=== PATIENT | female | born 1965 | race Caucasian/White ===

== ENCOUNTER 2021-02-21 13:26 | Emergency (ER) | payer OTHER, SELFPAY ==
[2021-02-21 13:45] VITALS: BP 174/84; PULSE 75; RESP 18; TEMP 36.8; O2SAT 98; BMI 32.3
[2021-02-21] MEDS: oxyCODONE HCl Immed Release 5 MG TABLET 10 MG PO (15:01)
--- NOTE | 2021-02-21 15:23 | PC.NURSE ---
3 YELLOW RINGS WITH STONES REMOVED FROM BILATERAL HANDS [address] VALDEZ.
[2021-02-21 15:26] VITALS: RESP 18
--- NOTE | 2021-02-21 15:58 | ED.EXTPRO ---
HPI - Extremity Problem General Chief complaint: Extremity Problem Stated complaint: hand pain Time Seen by Provider: 02/21/21 14:44 Source: patient Mode of arrival: ambulatory Limitations: no limitations History of Present Illness HPI Narrative: 55-year-old female presents for red, cracked, peeling skin to the palmar surface of her bilateral hands. She has severe pain, and a history of eczema. She did have a prescription for prednisone that she took at the end of December, and her hands were better. Two days after she stopped the prednisone, her hands became worse. She is using a mole Miko and gloves. She has rings on her finger that she cannot get off. Related Data Previous Rx's Medication Instructions Recorded cephalexin 500 mg capsule 500 mg PO QID 5 Days #20 cap 02/21/21 oxycodone 5 mg tablet 5 mg PO Q8H PRN 3 Days #9 tab 02/21/21 prednisone 20 mg tablet 60 mg PO DAILY 7 Days #21 tab 02/21/21 Allergies Allergy/AdvReac Type Severity Reaction Status Date / Time No Known Allergies Allergy Verified 02/21/21 13:47 Review of Systems Constitutional: Constitutional: Denies body ache(s), Denies chills, Denies fatigue, Denies fever(s), Denies headache(s), Denies malaise and Denies weakness Eyes: Eyes: Denies diplopia ENT: Denies vertigo, Denies dizziness, Denies otalgia, Denies headache(s), Denies mouth pain, Denies post nasal drip, Denies sinus pain, Denies sinus pressure, Denies sore throat and Denies throat swelling Cardiovascular: Cardiovascular: Denies chest pain, Denies syncope, Denies leg edema, Denies lightheadedness, Denies Loss of Consciousness, Denies palpitations and Denies dyspnea Respiratory: Respiratory: Denies chest congestion, Denies cough and Denies dyspnea Gastrointestinal: Gastrointestinal: Denies abdominal pain, Denies hematochezia, Denies constipation, Denies diarrhea and Denies vomiting Musculoskeletal: Musculoskeletal: Reports no additional musculoskeletal complaints Integumentary/Breasts: Skin/Breast: Reports swelling, Reports changing lesions, Reports erythema, Reports rash, Reports skin pain and Reports skin swelling Neurologic: Denies confusion, Denies vertigo, Denies dizziness, Denies syncope, Denies headache(s) and Denies weakness Psychiatric: Psychiatric: Denies anxiety, Denies confusion and Denies depression Endocrine: Endocrine: Denies fatigue and Denies palpitations Allergic/Immunologic: Allergic/Immunologic: Denies throat swelling PMFSH Past Medical History Surgical History H/O mechanical aortic valve replacement Social History Social History Advance Directives: No Advance Directives Information Provided: No Patient : No Physical Exam Vital Signs: Vital Signs: Last Vital Signs Temp 98.3 F 02/21/21 13:45 Pulse 75 02/21/21 13:45 Resp 18 02/21/21 15:26 BP 174/84 H 02/21/21 13:45 Pulse Ox 98 02/21/21 13:45 Body Mass Index 32.3 Const: General: No confusion Nutritional Appearance: well nourished Orientation/consciousness: No confusion Limitations: no limitations Eyes: Conjunctivae: conjunctivae normal Pupils: Equal, round and reactive pupils present EOM: EOMs intact bilaterally Resp: Effort & Inspection: normal respiratory effort and able to speak in complete sentences Auscultation: clear to auscultation bilaterally, no crackles, no rales, no rhonchi and no wheezes Cardio: Rate: regular rate Rhythm: regular rhythm Heart sounds: S1 normal heart sound present and S2 normal heart sound present Skin: Other: Desiccated vesicles to the palmar surface of bilateral hands, erythematous cracked skin around fingertips. Neuro: General: No confusion Cranial nerves: Yes Equal, round and reactive pupils present Extrem: General: Yes normal to inspection and Yes full ROM Psych: Appearance: grossly normal Affect: normal affect Attitude: cooperative Thought process: Normal thought process present Course Course Course Narrative: 55-year-old female presents with dyshidrotic eczema that is severe. Prescribed prednisone, Keflex, short course of oxycodone. Counseled patient that she can discuss with her doctor tacrolimus. We cut off her rings as her fingers were swollen. Patient advised to continue with the emmoliant and gloves, and follow-up with her primary care provider Discharge Plan Discharge Clinical Impression: Dyshidrotic hand dermatitis Patient Disposition: Home, Self-Care Instructions: Dyshidrotic Eczema (ED) Additional Instructions: Please call your primary care provider to make another appointment even if it may not be within a couple of weeks. Please fill your prescription for prednisone, take the 1st dose today, then take your prednisone always in the morning for the rest of that prescription. Please fill the prescription for cephalexin, this is your antibiotic, please take it for the next 5 days every 6 hours. Please continue to use an ammonia and over your hands and gloves to protect them. Please take oxycodone as needed. Prescriptions: New prednisone 20 mg tablet 60 mg PO DAILY 7 Days Qty: 21 RF: 0 cephalexin 500 mg capsule 500 mg PO QID 5 Days Qty: 20 RF: 0 oxycodone 5 mg tablet 5 mg PO Q8H PRN (Reason: pain) 3 Days Qty: 9 RF: 0 Interventions: ED Discharge Assessment Last Done: 02/21/21 15:26 Discharge Date/Time: 02/21/21 15:26
== END 2021-02-21 15:26 | disposition home or self-care (01) ==
PROVIDERS: Emergency Provider Emergency Medicine; PCP Internal Medicine
DX: L30.1 Dyshidrosis [pompholyx] (principal); Z95.2 Presence of prosthetic heart valve
CPT/HCPCS: 99283